=== PATIENT | male | born 1955 | race Caucasian/White ===

== ENCOUNTER 2017-09-27 21:06 | Observation (INO) | payer OTHER ==
[~2017-09-27] VITALS: Ht 167.6 cm; Wt 91.7 kg
[~2017-09-27 21:06] MED LIST: DEXT1TAB18 PO; GABA300C5 PO; OMEP20TA93 PO; ZITHTAB PO
[2017-09-27 21:14] VITALS: BP 114/68; PULSE 75; RESP 18; TEMP 98.4; O2SAT 97
--- NOTE | 2017-09-27 21:36 | PD ---
HPI Chief Complaint: Dizziness Time Seen by Provider: 21:22 Travel History International Travel<30 days: No Contact w/Intl Traveler<30days: No Traveled to known affect area: No History of Present Illness HPI 62-year-old male with history of hypercholesterolemia, here for evaluation of lightheadedness and visual changes. The patient reports that for the last week he has been having intermittent episodes of lightheadedness. This usually occurs while sitting at a desk performing work and resolves when he stands up and walks around. He states that this evening while watching TV the right side of his visual tovar went black. He states that this lasted for a few minutes and occurred about an hour prior to arrival. He is unsure if the visual field deficit was in one eye or both eyes. This has since resolved. No paresthesias or focal motor deficits. He states that intermittently for the last week when he walks he feels as though there is a sprain under his right leg that propels it in flexion. He has had intermittent headaches and currently has a slight headache that he describes as bandlike around his forehead to the back of his head, 3 out of 10, pressure. No fevers or recent illness. PFSH Past Medical History Diminished Hearing: No GERD: Yes Musculoskeletal: Yes (right foot) Ulcer: Yes Past Surgical History Abdominal Surgery: Yes (debra inguinal hernia repair) Social History Alcohol Use: Yes (social) Tobacco Use: No Allergies-Medications (Allergen,Severity, Reaction): Coded Allergies: No Known Allergies (Unverified , 05/28/16) Reported Meds & Prescriptions Reported Meds & Active Scripts Active Mucinex DM Maximum Strength (Dextromethorphan-Guaifenesin ER 12 HR) 60-1,200 Mg Tab 1 Tab PO BID PRN Zithromax Z-Lobo (Azithromycin) 250 Mg Dspk 250 Mg PO DIRECTED 500 MG (2 tabs) day 1, then 1 tab days 2-5. Reported Omeprazole 20 Mg Tab 20 Mg PO DAILY Gabapentin 300 Mg Cap 300 Mg PO BID PRN Review of Systems Except as stated in HPI: all other systems reviewed are Neg Physical Exam Narrative GENERAL: Well-developed, well-nourished, comfortable, no apparent distress. SKIN: Focused skin assessment warm/dry. HEAD: Atraumatic. Normocephalic. EYES: Pupils equal, round, 3 mm, reactive to light. Visual acuity shows 20/40 in the left eye, 20/70 in the right eye, 20/40 in bilateral eyes. Visual tovar are intact. No scleral icterus. No injection or drainage. ENT: Mucous membranes pink and moist. NECK: Trachea midline. No JVD. CARDIOVASCULAR: Regular rate and rhythm. RESPIRATORY: No accessory muscle use. Clear to auscultation. Breath sounds equal bilaterally. GASTROINTESTINAL: Abdomen soft, non-tender, nondistended. MUSCULOSKELETAL: No obvious deformities. No clubbing. No cyanosis. No edema. NEUROLOGICAL: Awake and alert. No obvious cranial nerve deficits. Motor grossly within normal limits. Normal speech. Normal [id number] test bilaterally. No pronator drift. PSYCHIATRIC: Appropriate mood and affect; insight and judgment normal. Data Data Last Documented VS Vital Signs Date Time Temp Pulse Resp B/P (MAP) Pulse Ox O2 Delivery O2 Flow Rate FiO2 09/27/17 22:13 67 18 96/68 (77) 97 Room Air 09/27/17 21:14 98.4 Orders Orders Complete Blood Count With Diff (09/27/17 21:31) Comprehensive Metabolic Panel (09/27/17 21:31) Prothrombin Time / Inr (Pt) (09/27/17 21:31) Act Partial Throm Time (Ptt) (09/27/17 21:31) Iv Access Insert/Monitor (09/27/17 21:31) Ecg Monitoring (09/27/17 21:31) Oximetry (09/27/17 21:31) Sodium Chloride 0.9% Flush (Ns Flush) (09/27/17 21:45) Electrocardiogram (09/27/17 21:31) Ct Brain W/O Iv Contrast(Rout) (09/27/17 ) Aspirin Ec (Ecotrin Ec) (09/27/17 22:15) Urinalysis - C+S If Indicated (09/27/17 22:29) Place In Observation (09/27/17 ) Vital Signs (Adult) Q2HX12,Q4H (09/27/17 22:35) Nih Stroke Scale - Nihss .Daily (09/27/17 22:35) Neuro Checks Q2HX12,Q4H (09/27/17 22:35) Notify Dr: Other (09/27/17 22:35) Remove Urinary Catheter .ONCE (09/27/17 22:35) Ot Request For Service (09/27/17 22:35) Pt Request For Service (09/27/17 22:35) Case Management Consult (09/27/17 ) Activity Oob Ad Blanca (09/27/17 22:35) Nursing Bedside Swallow Assess .ONCE (09/27/17 22:35) Scd Bilateral/Knee High LOGAN.QSHIFT (09/27/17 22:35) Diet Npo (09/28/17 Breakfast) Hemoglobin (Hgb) A1c (09/27/17 22:35) Lipid Profile (09/28/17 06:00) Us Carotid Arteries Comp Bilat (09/27/17 ) Mra Brain W/O Contrast (Cow) (09/27/17 ) Mri Brain W/O Contrast (09/27/17 ) ^ Hold Medication (09/27/17 22:35) Consult Neurology (09/27/17 ) Sodium Chloride 0.9% Flush (Ns Flush) (09/28/17 09:00) Sodium Chloride 0.9% Flush (Ns Flush) (09/27/17 22:45) Sodium Chlor 0.9% 1000 Ml Inj (Ns 1000 M (09/27/17 22:35) Aspirin (Aspirin) (09/28/17 09:00) Bedside Glucose LOGAN.CSUGAR (09/27/17 22:35) ^ Discontinue Insulin Orders (09/27/17 22:35) Low Novolog Scale (09/28/17 08:00) Dextrose 50% In Godfrey (Vial) Inj (D50w (Vi (09/27/17 22:45) Glucagon Inj (Glucagon Inj) (09/27/17 22:45) Plant Nursery Worker / Telemetry LOGAN.Q8H (09/27/17 22:35) Consult Stroke Navigator (09/27/17 ) Heparin Inj (Heparin Inj) (09/27/17 22:45) Admit Order (Ed Use Only) (09/27/17 22:36) Labs Laboratory Tests Test 09/27/17 21:45 White Blood Count 8.1 TH/MM3 Red Blood Count 4.56 MIL/MM3 Hemoglobin 13.8 GM/DL Hematocrit 42.3 % Mean Corpuscular Volume 92.9 FL Mean Corpuscular Hemoglobin 30.3 PG Mean Corpuscular Hemoglobin Concent 32.6 % Red Cell Distribution Width 12.7 % Platelet Count 334 TH/MM3 Mean Platelet Volume 7.9 FL Neutrophils (%) (Auto) 56.8 % Lymphocytes (%) (Auto) 34.6 % Monocytes (%) (Auto) 5.7 % Eosinophils (%) (Auto) 2.3 % Basophils (%) (Auto) 0.6 % Neutrophils # (Auto) 4.6 TH/MM3 Lymphocytes # (Auto) 2.8 TH/MM3 Monocytes # (Auto) 0.5 TH/MM3 Eosinophils # (Auto) 0.2 TH/MM3 Basophils # (Auto) 0.0 TH/MM3 CBC Comment DIFF FINAL Differential Comment Prothrombin Time 9.8 SEC Prothromb Time International Ratio 1.0 RATIO Activated Partial Thromboplast Time 26.5 SEC Blood Urea Nitrogen 11 MG/DL Creatinine 1.10 MG/DL Random Glucose 107 MG/DL Total Protein 8.0 GM/DL Albumin 4.1 GM/DL Calcium Level 9.3 MG/DL Alkaline Phosphatase 75 U/L Aspartate Amino Transf (AST/SGOT) 19 U/L Alanine Aminotransferase (ALT/SGPT) 26 U/L Total Bilirubin 0.2 MG/DL Sodium Level 139 MEQ/L Potassium Level 3.6 MEQ/L Chloride Level 104 MEQ/L Carbon Dioxide Level 30.5 MEQ/L Anion Gap 5 MEQ/L Estimat Glomerular Filtration Rate 68 ML/MIN MDM Medical Decision Making Medical Screen Exam Complete: Yes Emergency Medical Condition: Yes Interpretation(s) EKG: Sinus, rate 72, normal axis, normal intervals, no acute ischemic abnormality. Differential Diagnosis CVA/TIA, intracranial abnormality, metabolic abnormality, amaurosis fugax Narrative Course Initial vital signs show heart rate 75, blood pressure 114/68, pulse ox 97% on room air, oral temperature 98.4F. CBC is unremarkable. CMP is unremarkable. CT head: No acute intracranial findings. Mild mucosal disease in the ethmoid air cells. Patient was made aware of all findings. He is resting comfortably. No focal neurologic findings while in the emergency department. He also reports that his right-sided visual field deficits have resolved and were resolved prior to arrival. Sounds as though the patient may have had a TIA. He does have history of hypercholesterolemia and was on a statin for years, however this causes muscle cramps, so he stopped taking this medication. He was given a full aspirin and will be admitted for further TIA workup. Case discussed with hospitalist Dr. Fernandes who will admit the patient to the hospitalist service. Diagnosis Primary Impression: Transient vision disturbance Additional Impression: Lightheadedness Admitting Information Admitting Physician Requests: Observation Al Rosen MD Sep 27, 2017 21:36
[2017-09-27 21:45] VITALS: RESP 18; O2SAT 100
[2017-09-27] MEDS ORDERED: SODIUM CHLORIDE 0.9% FLUSH 10 ML FLUSH IV FLUSH PRN ×2 (21:45→22:45)
[2017-09-27 22:00] LABS: AUTOMATED NEUTROPHIL # 4.6 TH/MM3 (1.8-7.7); BASOPHIL % 0.6 % (0.0-2.0); EOSINOPHIL # 0.2 TH/MM3 (0-0.4); EOSINOPHIL % 2.3 % (0.0-4.0); HEMATOCRIT 42.3 % (39.0-51.0); HEMOGLOBIN 13.8 GM/DL (13.0-17.0); LYMPH % 34.6 % (9.0-44.0); LYMPHOCYTE # 2.8 TH/MM3 (1.0-4.8); MEAN CELL VOLUME 92.9 FL (80.0-100.0); MEAN CORPUSCULAR HEMOGLOBIN 30.3 PG (27.0-34.0); MEAN CORPUSCULAR HGB CONC 32.6 % (32.0-36.0); MEAN PLATELET VOLUME 7.9 FL (7.0-11.0); MONO % 5.7 % (0.0-8.0); MONOCYTE # 0.5 TH/MM3 (0-0.9); NEUT % 56.8 % (16.0-70.0); PLATELET COUNT 334 TH/MM3 (150-450); RED BLOOD COUNT 4.56 MIL/MM3 (4.50-5.90); RED CELL DISTRIBUTION WIDTH 12.7 % (11.6-17.2); WHITE BLOOD COUNT 8.1 TH/MM3 (4.0-11.0)
--- NOTE | 2017-09-27 22:01 | RADRPT ---
EXAM DATE/TIME: 09/27/2017 21:45 [facility] COMPARISON: No previous studies available for comparison. INDICATIONS : Cephalgia, dizziness, and intermittent blurry vision. RADIATION DOSE: 53.25 CTDIvol (mGy) MEDICAL HISTORY : None SURGICAL HISTORY : None. ENCOUNTER: Initial ACUITY: 1 week PAIN SCALE: 5/10 LOCATION: cranial TECHNIQUE: Multiple contiguous axial images were obtained of the head. Using automated exposure control and adj ustment of the mA and/or kV according to patient size, radiation dose was kept as low as reasonably a chievable to obtain optimal diagnostic quality images. DICOM format image data is available electro nically for review and comparison. FINDINGS: CEREBRUM: The ventricles are normal for age. No evidence of midline shift, mass lesion, hemorrhage or acute in farction. No extra-axial fluid collections are seen. POSTERIOR FOSSA: The cerebellum and brainstem are intact. The 4th ventricle is midline. The cerebellopontine angle i s unremarkable. EXTRACRANIAL: Mild mucosal disease in ethmoid air cells. SKULL: The calvaria is intact. No evidence of skull fracture. CONCLUSION: No acute intracranial findings Fred Johnston MD on September 27, 2017 at 21:57 Board Certified Radiologist. This report was verified electronically.
[2017-09-27 22:11] LABS: CHLORIDE 104 MEQ/L (98-107); SODIUM (NA) 139 MEQ/L (136-145)
[2017-09-27 22:13] VITALS: BP 96/68; PULSE 67; RESP 18; O2SAT 97
[2017-09-27 22:14] LABS: CALCIUM 9.3 MG/DL (8.5-10.1)
[2017-09-27 22:15] LABS: ALBUMIN 4.1 GM/DL (3.4-5.0); BICARBONATE 30.5 MEQ/L (21.0-32.0); BLOOD UREA NITROGEN 11 MG/DL (7-18); GLUCOSE,RANDOM 107 MG/DL (74-106)
[2017-09-27] MEDS ORDERED: ASPIRIN EC 325 MG TABEC PO ONE (22:15)
[2017-09-27 22:17] LABS: PROTHROMBIN TIME - PATIENT 9.8 SEC (9.8-11.6)
[2017-09-27 22:18] LABS: ALT (GPT) 26 U/L (12-78); AST (GOT) 19 U/L (15-37); GLOMERULAR FILTRATION RATE 68 ML/MIN (>89)
[2017-09-27 22:20] LABS: TOTAL BILIRUBIN ADULT 0.2 MG/DL (0.2-1.0)
[2017-09-27 22:21] LABS: ALKALINE PHOSPHATASE 75 U/L (45-117)
[2017-09-27] MEDS ORDERED: SODIUM CHLOR 0.9% 1000 ML INJ 1,000 ML IV SCH (22:35)
[2017-09-27 22:44] LABS: BILIRUBIN, URINE NEG (NEG); BLOOD, URINE NEG (NEG); GLUCOSE,URINE NEG (NEG); KETONE, URINE NEG (NEG); NITRITE,URINE NEG (NEG); PH, URINE 7.5 (5.0-8.5); URINE COLOR YELLOW (YELLW/STRAW); URINE LEUKOCYTE ESTERASE NEG (NEG)
[2017-09-27] MEDS ORDERED: GLUCAGON 1 MG/ML VIAL OTHER PRN (22:45)
[2017-09-27] MEDS ORDERED: DEXTROSE 50% IN WATER 50 ML VIAL(D50) IV PUSH PRN (22:45)
[2017-09-27] MEDS: HEPARIN SODIUM - SQ 10,000 UNITS/ML VIAL SQ SCH ×2 (22:45→23:46)
[2017-09-27 22:49] LABS: RBC, URINE 0-2 /hpf (0-3); SQUAMOUS EPITHELIAL CELL URINE 0-5 /hpf (0-5); WBC, URINE 0-2 /hpf (0-5)
[2017-09-27 23:45] VITALS: PULSE 68
[2017-09-28 03:30] VITALS: BP 108/68; PULSE 63; RESP 20; TEMP 97; O2SAT 97
[2017-09-28] MEDS: HEPARIN SODIUM - SQ 10,000 UNITS/ML VIAL SQ SCH (06:00)
[2017-09-28 08:00] VITALS: BP 118/67; PULSE 64; PULSE 69; RESP 15; TEMP 98; O2SAT 92
[2017-09-28] MEDS: INSULIN ASPART SUPPLEMENTAL SCALE SQ SCH ×2 (08:00→12:00)
--- NOTE | 2017-09-28 08:38 | RADRPT ---
EXAM DATE/TIME: 09/28/2017 07:58 [facility] COMPARISON: No previous studies available for comparison. INDICATIONS : Transient ischemic attack. MEDICAL HISTORY : Gastroesophageal reflux disease. Arthritis. Barets esophagus. Ulcers. Hiatal hernia. Heartburn. Enl arged prostate. Pinched nerves. Blood transfusions. SURGICAL HISTORY : Bilateral inguinal hernia repair. Left leg surgery. Carpal tunnel surgery left hand. ENCOUNTER: Initial ACUITY: 1 day PAIN SCORE: 0/10 LOCATION: Bilateral neck PEAK SYSTOLIC VELOCITIES (cm/sec): ICA/CCA RATIO: Right: 1.3 Left: 1.0 ICA: Right: 136 Left: 119 CCA: Right: 103 Left: 115 ECA: Right: 59 Left: 152 VERTEBRAL: Right: 42 antegrade Left: 89 antegrade Elevated flow velocities and ICA/CCA ratios have been found to correlate with increased degrees of vessel stenosis, calculated as percentage of diameter relative to a normal segment of distal ICA/CCA FINDINGS: RIGHT CAROTID: No significant stenosis is visualized. The waveforms are within normal limits. LEFT CAROTID: No significant stenosis is visualized. The waveforms are within normal limits. VERTEBRAL ARTERIES: Antegrade flow is seen in both vertebral arteries. MISCELLANEOUS: None. CONCLUSION: 1. Minimal bilateral carotid plaque without significant flow-limiting stenosis. 2. Antegrade vertebral artery flow bilaterally. Jimmie Arredondo MD on September 28, 2017 at 8:36 Board Certified Radiologist. This report was verified electronically.
[2017-09-28] MEDS ORDERED: ASPIRIN 325 MG TAB PO SCH (09:00)
[2017-09-28] MEDS ORDERED: SODIUM CHLORIDE 0.9% FLUSH 10 ML FLUSH IV FLUSH SCH (09:00)
--- NOTE | 2017-09-28 09:08 | PD.PN.STU ---
Subjective Remarks 62 year old male with history of hypercholesteremia presented to the ED with lightheadedness and loss of vision in his right visual field for 30 minute duration. He reports that he has had intermittent episodes of feeling lightheaded and unsteady on his feet when he goes from sitting to standing. He denies loss of consciousness or dizziness during these episodes. Yesterday he was watching TV when he describes that there was a "curtain pulled over half of his vision" on the right side. Vision change lasted approximately 15 minutes. His vision returned to normal before presenting to [facility] ED. He had no focal motor deficits but was unsteady on his feet when walking to the car/into the ED. Associated symptoms include headache which was a 3/10 on arrival, band- like around his forehead, and relieved by aspirin in the ED. Objective Vitals Vital Signs Date Time Temp Pulse Resp B/P (MAP) Pulse Ox O2 Delivery O2 Flow Rate FiO2 09/28/17 03:30 97.0 63 20 108/68 (81) 97 09/27/17 23:45 68 09/27/17 23:14 09/27/17 22:13 67 18 96/68 (77) 97 Room Air 09/27/17 21:45 18 100 Room Air 09/27/17 21:34 18 98 Room Air 09/27/17 21:14 98.4 75 18 114/68 (83) 97 I/O 09/27/17 09/27/17 09/27/17 09/28/17 09/28/17 09/28/17 06:59 14:59 22:59 06:59 14:59 22:59 Intake Total 423 ml Output Total 775 ml Balance -352 ml Intake Oral 0 ml IV Total 423 ml Output Urine Total 775 ml # Voids 2 # Bowel Movements 0 Result Diagram: [id number]/27/17214409/[id number] Padma Moeller Sep 28, 2017 09:08 Karina Novoa MD Sep 28, 2017 12:18
[2017-09-28] MEDS ORDERED: SODIUM CHLOR 0.9% 1000 ML INJ 1,000 ML IV SCH (10:10)
[2017-09-28] MEDS ORDERED: ASPIRIN EC 325 MG TABEC PO SCH (10:15)
[2017-09-28 10:24] LABS: CHOLESTEROL 187 MG/DL (120-200); TRIGLYCERIDES 109 MG/DL (42-150)
[2017-09-28 10:26] LABS: CHOLESTEROL/ HDL RATIO 4.25 RATIO; LDL CHOLESTEROL 121 MG/DL (0-99)
--- NOTE | 2017-09-28 10:39 | RADRPT ---
EXAM DATE/TIME: 09/28/2017 09:44 [facility] COMPARISON: No previous studies available for comparison. INDICATIONS : TIA. Intermittent blurry vision yesterday, now resolved. MEDICAL HISTORY : None. SURGICAL HISTORY : Umbilical hernia repair. Carpal tunnel. Left leg fracture. ENCOUNTER: Subsequent ACUITY: 2 day PAIN SCORE: 0/10 LOCATION: head. Please note a normal MRA of the brain does not entirely exclude the possibility of a small aneurysm, nor the possibility of distal intracranial vessel disease. TECHNIQUE: 3D time of flight MRA was performed. Source images, multiplanar STS MIP, and 3D volume MIP reconstru ctions were reviewed. FINDINGS: Anterior circulation: Distal intracranial internal carotid arteries are patent with flow extending to the middle and anteri or cerebral arteries. There is no evidence for aneurysm, vessel truncation or stenosis, and no eviden ce for vascular malformation. Posterior circulation: Symmetric distal vertebral arteries with flow extending to basilar artery. There is origin of the left posterior she will artery. Apparent focal occlusion/severe stenosis of the proximal left pos terior cerebral artery. There is no evidence for aneurysm and no evidence for vascular malformation. CONCLUSION: 1. origin of the left posterior cerebral artery with apparent focal occlusion/severe stenosis o f the proximal segment. Consider CTA examination for further evaluation. Jimmie Arredondo MD on September 28, 2017 at 10:32 Board Certified Radiologist. This report was verified electronically.
--- NOTE | 2017-09-28 10:41 | RADRPT ---
EXAM DATE/TIME: 09/28/2017 09:44 [facility] COMPARISON: No previous studies available for comparison. INDICATIONS : TIA. Intermittent blurry vision yesterday, now resolved. MEDICAL HISTORY : None. SURGICAL HISTORY : Umbilical hernia repair. Carpal tunnel. Left leg fracture. ENCOUNTER: Subsequent ACUITY: 2 day PAIN SCORE: 0/10 LOCATION: head. TECHNIQUE: Multiplanar, multisequence MRI of the brain was performed without contrast. FINDINGS: CEREBRUM: The ventricles are normal for age. No evidence of midline shift, mass lesion, hemorrhage or acute in farction. No extraaxial fluid collections are seen. The pituitary gland and suprasellar cistern are normal in configuration. WHITE MATTER: No significant signal abnormalities are seen in the white matter. POSTERIOR FOSSA: The cerebellum and brainstem are intact. The 4th ventricle is midline. The cerebellopontine angle is unremarkable. The cerebellar tonsils are normal in position. DIFFUSION IMAGING: No focal areas of restricted diffusion are seen. No evidence of acute infarction. EXTRACRANIAL: Mild mucoperiosteal soft tissue swelling is seen throughout the ethmoid air cells. CONCLUSION: 1. Mild inflammatory paranasal sinus disease. 2. Normal appearing brain without evidence of acute infarct, hemorrhage, mass or edema. 1. Esvin Isaac MD on September 28, 2017 at 10:37 Board Certified Radiologist. This report was verified electronically.
--- NOTE | 2017-09-28 10:42 | MB ---
cc: Preet Panchal MD DATE: 09/28/2017 HISTORY OF PRESENT ILLNESS: A 62-year-old right-handed man without significant past medical history. He gets a rare headache not very often. He has felt for the last week or so his right leg seemed a little off where it might bounce up too quick. No other symptoms. It happened if he sat for a while and then yesterday he was watching TV, felt a little lightheaded, no vertigo or spinning, and then he noticed that he could not see over to the right. He did not cover either eye at that time. It seemed to come over from the right and if he concentrated hard this darkness on the right side seemed to recede back, but then it would come back again. He did not have a headache at that time, but had a mild bifrontal headache afterwards. There was no brightness or sparkling to it. When he covered his one eye and then the other, which was much later after it had resolved, he did not notice any difference, although evidently his visual acuity in the right eye was down somewhat in the ER. REVIEW OF SYSTEMS: He denied any other significant migraine headaches, chest pain, palpitations, hypertension, diabetes, hypercholesterolemia, MN, CABG, cardiac arrhythmia, renal, hepatic or pulmonary disease, thyroid disease, lupus, ulcer, cancer, seizure or stroke. SOCIAL HISTORY: Not a smoker or a drinker. He lives with his . FAMILY HISTORY: Negative for cancer, seizure, or stroke. Positive for COPD. Positive for CAD. PAST MEDICAL HISTORY: From the chart, history of hypercholesterolemia, although he denies it to me. MEDICATIONS: 1. Omeprazole. 2. Gabapentin 300 b.i.d. p.r.n. 3. Zithromax. 4. Dextromethorphan. ALLERGIES: NO KNOWN DRUG ALLERGIES. PHYSICAL EXAMINATION: VITAL SIGNS: Afebrile, 69, 15, 118/67. He has been in sinus rhythm here. No atrial fibrillation. Normal pulse oximetry. NECK: There were no carotid or vertebral bruits. HEART: Regular rate and rhythm. I did not detect a murmur. NEUROLOGIC: Pupils are equal. Visual tovar are full. Extraocular movements intact without nystagmus. There was no scotoma on the right side. Face was symmetric with normal sensation. Tongue was midline. There is no drift. She had normal strength in the upper and lower extremities bilaterally. DTRs are trace throughout. Toes are downgoing bilaterally. Pinprick is intact throughout including the face. He is not ataxic on [id number]. Speech is fluent. He is not aphasic. Temples are nontender bilaterally, nor has he had any tenderness there. LABORATORY DATA: CBC is normal. UA is negative. Basic metabolic profile normal. LFTs are normal. LDL is pending. Coags were normal. He had a carotid ultrasound that was negative. CAT scan of the brain was read as normal. MRI of the brain showed minimal white matter changes bilaterally. MRA habematolel of Patricia preliminary negative. Await the official reports. IMPRESSION: 1. Possible transient monocular blindness, although it usually comes down more from the superior to the inferior not laterally. A transient homonymous hemianopsia could be considered or a migraine could also be considered. I will give him a 325 of aspirin, check an echo and Holter, some additional blood work including a sedimentation rate. If his LDL is elevated, I would recommend a statin. Check an MRA of the neck to make sure that there is no occult carotid disease not picked up by the ultrasound. If his echo is negative and his MRA is negative and his EEG is done and his official reports on his MR is negative, he could be discharged later today with the Holter on. I think he should see ophthalmology either here in the hospital or tomorrow as an outpatient to see if there is any Hollenhorst plaques noted on his retinal exam. Also, if he is discharged, the med team should make sure that his sedimentation rate and CRP are negative, which I ordered. Preet Panchal MD DJAinsley/ALIA , 10:13 AM , 10:41 AM
[2017-09-28] MEDS ORDERED: GADODIAMIDE PF 287 MG/ML 20 ML VIAL (for RAD MRI) IVCONTRAST ONE (11:15)
--- NOTE | 2017-09-28 11:44 | RADRPT ---
EXAM DATE/TIME: 09/28/2017 10:42 [facility] COMPARISON: No previous studies available for comparison. INDICATIONS : Stenosis. CONTRAST: 20 cc Omniscan (gadodiamide) IV MEDICAL HISTORY : None. SURGICAL HISTORY : Umbilical hernia repair. Carpal tunnel. Left leg fracture. ENCOUNTER: Subsequent ACUITY: 2 day PAIN SCORE: 0/10 LOCATION: neck. Percent stenosis is calculated using the diameter of the stenotic region over the diameter of the nor mal distal internal carotid artery. TECHNIQUE: Bolus infused MRA of the extracranial circulation was performed using a neurovascular coil. Post pro cessing was performed including rotating subvolume maximum intensity projections of each carotid vickey ry, rotating full volume maximum intensity projections of both carotid arteries, sagittal and coronal sliding thin slab reformations of each carotid artery, and left oblique sliding thin slab reformatio n through the aortic arch to include the origin of the arch branch vessels. FINDINGS: AORTIC ARCH: There is a three vessel origin of the great vessels from the aorta. No evidence of ostial narrowing. High-grade stenosis is identified in the proximal left subclavian artery just distal to the vertebra l artery. RIGHT CAROTID: The common carotid artery is intact. The carotid bulb has a normal configuration without ulceration or narrowing. The internal carotid artery lumen is smooth without stenosis. The external carotid ar logan is intact. LEFT CAROTID: The common carotid artery is intact. The carotid bulb has a normal configuration without ulceration or narrowing. The internal carotid artery lumen is smooth without stenosis. The external carotid ar logan is intact. VERTEBRALS: The vertebral arteries are asymmetric in appearance with a dominant left vertebral artery. The proxim al right vertebral artery is not clearly visualized. CONCLUSION: 1. High-grade proximal left subclavian artery stenosis. 2. No evidence of hemodynamically significant stenosis involving the carotid arteries.. 3. Dominant left vertebral artery 4. Poor visualization of the right vertebral artery origin. Esvin Isaac MD on September 28, 2017 at 11:36 Board Certified Radiologist. This report was verified electronically.
[2017-09-28 12:00] VITALS: BP 122/82; PULSE 67; RESP 16; TEMP 96; O2SAT 96
[2017-09-28 12:05] LABS: C-REACTIVE PROTEIN 0.83 MG/DL (0.00-0.30)
[2017-09-28 12:09] LABS: TROPONIN I LESS THAN 0.02 NG/ML (0.02-0.05)
--- NOTE | 2017-09-28 12:35 | HHI.HP ---
[facility] Phys[facility] Admission Diagnosis Transient visual disturbance, lightheadedness Diagnoses: Chief Complaint: Change in vision Travel History International Travel<30 Days: No Contact w/Intl Traveler <30 Da: No Traveled to Known Affected Are: No History of Present Illness This patient is a 62-year-old gentleman who had an 1 day acute right sided vision loss for 15 minute duration. Patient describes it as a curtain coming over his right visual field had a headache and lightheadedness associated with this. He was unsteady on his feet. Patient describes intermittent lightheadedness for 1 week, worse with standing. Patient denies any numbness peripheral weakness chest pain shortness of breath or palpitations. No new medications prescribed. Patient did come to the emergency room for further evaluation and treatment of the symptoms. By the time of his arrival to the emergency room his vision had returned to normal. Patient normally does wear trifocal lenses. He has been seen at this time by neurology and has had multiple imaging studies which are concerning for some high-grade left subclavian vascular stenosis. Patient has been recommended for anticoagulation versus aspirin however patient is quite concerned given his history of gastrointestinal issues including Parks's esophagus and ulceration of the stomach. Review of Systems Constitutional: DENIES: Diaphoretic episodes, Fatigue, Fever, Weight gain, Weight loss, Chills, Dizziness, Change in appetite, Night Sweats Endocrine: DENIES: Heat/cold intolerance, Polydipsia, Polyuria, Polyphagia Eyes: COMPLAINS OF: Vision loss, DENIES: Blurred vision, Diplopia, Eye inflammation, Eye pain, Photosensitivity, Double Vision Ears, nose, mouth, throat: DENIES: Tinnitus, Hearing loss, Vertigo, Nasal discharge, Oral lesions, Throat pain, Hoarseness, Ear Pain, Running Nose, Epistaxis, Sinus Pain, Toothache, Odynophagia Respiratory: DENIES: Apneas, Cough, Snoring, Wheezing, Hemoptysis, Sputum production, Shortness of breath Cardiovascular: DENIES: Chest pain, Palpitations, Syncope, Dyspnea on Exertion , PND, Lower Extremity Edema, Orthopnea, Claudication Gastrointestinal: DENIES: Abdominal pain, Black stools, Bloody stools, Constipation, Diarrhea, Nausea, Vomiting, Difficulty Swallowing, Anorexia Genitourinary: DENIES: Sexual dysfunction, Urinary frequency, Urinary incontinence, Urgency, Hematuria, Dysuria, Nocturia, Penile Discharge, Testicular Pain, Testicular Swelling Musculoskeletal: DENIES: Joint pain, Muscle aches, Stiffness, Joint Swelling, Back pain, Neck pain Integumentary: DENIES: Abnormal pigmentation, Nail changes, Pruritus, Rash Hematologic/lymphatic: DENIES: Bruising, Lymphadenopathy Immunologic/allergic: DENIES: Eczema, Urticaria Neurologic: COMPLAINS OF: Headache, DENIES: Abnormal gait, Localized weakness, Paresthesias, Seizures, Speech Problems, Tremor, Poor Balance Psychiatric: DENIES: Anxiety, Confusion, Mood changes, Depression, Hallucinations, Agitation, Suicidal Ideation, Homicidal Ideation, Delusions Except as stated in HPI: all other systems reviewed are Neg Lightheadedness Past Family Social History Past Medical History Hypercholesterolemia Parks's esophagus Gastritis History of ulcers Past Surgical History Bilateral inguinal hernia repair Carpal tunnel release With cyst removal on the right Reported Medications Reviewed in the EMR, does not take azithromycin or Mucinex Allergies: Coded Allergies: No Known Allergies (Unverified Allergy, Unknown, 09/27/17) Active Ordered Medications Reviewed in the EMR Family History Mother of "fluid on the lungs "at 52 Father of emphysema at 72 Social History airline mechanic Retired [place] Social alcohol Quit tobacco 9 years ago, 35 pack year history Physical Exam Vital Signs Vital Signs Date Time Temp Pulse Resp B/P (MAP) Pulse Ox O2 Delivery O2 Flow Rate FiO2 09/28/17 08:00 98.0 69 15 118/67 (84) 92 09/28/17 08:00 64 09/28/17 03:30 97.0 63 20 108/68 (81) 97 09/27/17 23:45 68 09/27/17 23:14 09/27/17 22:13 67 18 96/68 (77) 97 Room Air 09/27/17 21:45 18 100 Room Air 09/27/17 21:34 18 98 Room Air 09/27/17 21:14 98.4 75 18 114/68 (83) 97 Physical Exam GENERAL: This is a well-nourished, well-developed patient, in no apparent distress. SKIN: No rashes, ecchymoses or lesions. Cool and dry. HEAD: Atraumatic. Normocephalic. No temporal or scalp tenderness. EYES: Pupils equal round and reactive. Extraocular motions intact. No scleral icterus. No injection or drainage. ENT: Nose without bleeding, purulent drainage or septal hematoma. Throat without erythema, tonsillar hypertrophy or exudate. Uvula midline. Airway patent. NECK: Trachea midline. No JVD or lymphadenopathy. Supple, nontender, no meningeal signs. CARDIOVASCULAR: Regular rate and rhythm without murmurs, gallops, or rubs. RESPIRATORY: Clear to auscultation. Breath sounds equal bilaterally. No wheezes , rales, or rhonchi. GASTROINTESTINAL: Abdomen soft, non-tender, nondistended. No hepato-splenomegaly , or palpable masses. No guarding. MUSCULOSKELETAL: Extremities without clubbing, cyanosis, or edema. No joint tenderness, effusion, or edema noted. No calf tenderness. Negative Homans sign bilaterally. NEUROLOGICAL: Awake and alert. Cranial nerves II through XII intact. Motor and sensory grossly within normal limits. Five out of 5 muscle strength in all muscle groups. Normal speech. Laboratory Laboratory Tests Test 09/27/17 21:45 09/27/17 22:35 09/28/17 05:00 09/28/17 11:00 White Blood Count 8.1 Red Blood Count 4.56 Hemoglobin 13.8 Hematocrit 42.3 Mean Corpuscular Volume 92.9 Mean Corpuscular Hemoglobin 30.3 Mean Corpuscular Hemoglobin Concent 32.6 Red Cell Distribution Width 12.7 Platelet Count 334 Mean Platelet Volume 7.9 Neutrophils (%) (Auto) 56.8 Lymphocytes (%) (Auto) 34.6 Monocytes (%) (Auto) 5.7 Eosinophils (%) (Auto) 2.3 Basophils (%) (Auto) 0.6 Neutrophils # (Auto) 4.6 Lymphocytes # (Auto) 2.8 Monocytes # (Auto) 0.5 Eosinophils # (Auto) 0.2 Basophils # (Auto) 0.0 CBC Comment DIFF FINAL Differential Comment Prothrombin Time 9.8 Prothromb Time International Ratio 1.0 Activated Partial Thromboplast Time 26.5 Blood Urea Nitrogen 11 Creatinine 1.10 Random Glucose 107 Total Protein 8.0 Albumin 4.1 Calcium Level 9.3 Alkaline Phosphatase 75 Aspartate Amino Transf (AST/SGOT) 19 Alanine Aminotransferase (ALT/SGPT) 26 Total Bilirubin 0.2 Sodium Level 139 Potassium Level 3.6 Chloride Level 104 Carbon Dioxide Level 30.5 Anion Gap 5 Estimat Glomerular Filtration Rate 68 Urine Color YELLOW Urine Turbidity CLEAR Urine pH 7.5 Urine Specific [place] 1.010 Urine Protein NEG Urine Glucose (UA) NEG Urine Ketones NEG Urine Occult Blood NEG Urine Nitrite NEG Urine Bilirubin NEG Urine Urobilinogen 0.2 Urine Leukocyte Esterase NEG Urine RBC 0-2 Urine WBC 0-2 Urine Squamous Epithelial Cells 0-5 Urine Bacteria NONE Microscopic Urinalysis Comment CULT NOT INDICATED Triglycerides Level 109 Cholesterol Level 187 LDL Cholesterol 121 HDL Cholesterol 44.0 Cholesterol/HDL Ratio 4.25 Total Creatine Kinase 50 Troponin I LESS THAN 0.02 C-Reactive Protein 0.83 Thyroid Stimulating Hormone 3rd Gen 1.570 Result Diagram: 09/27/17214409/27/172144 Imaging Last Impressions Neck Magnetic Resonance Angiography 09/28/17 1102 Signed Impressions: Service Date/Time: September 10:42 - CONCLUSION: 1. High- grade proximal left subclavian artery stenosis. 2. No evidence of hemodynamically significant stenosis involving the carotid arteries.. 3. Dominant left vertebral artery 4. Poor visualization of the right vertebral artery origin. Esvin Isaac MD Head Magnetic Resonance Angiography 09/28/17 0000 Signed Impressions: Service Date/Time: September 09:44 - CONCLUSION: 1. origin of the left posterior cerebral artery with apparent focal occlusion/severe stenosis of the proximal segment. Consider CTA examination for further evaluation. Jimmie Arredondo MD Carotid Artery Ultrasound 09/28/17 0000 Signed Impressions: Service Date/Time: September 07:58 - CONCLUSION: 1. Minimal bilateral carotid plaque without significant flow-limiting stenosis. 2. Antegrade vertebral artery flow bilaterally. Jimmie Arredondo MD Brain MRI 09/28/17 0000 Signed Impressions: Service Date/Time: September 09:44 - CONCLUSION: 1. Mild inflammatory paranasal sinus disease. 2. Normal appearing brain without evidence of acute infarct, hemorrhage, mass or edema. 1. Esvin Isaac MD Head CT 09/27/17 0000 Signed Impressions: Service Date/Time: Wednesday, September 27, 2017 21:45 - CONCLUSION: No acute intracranial findings MD Rajeev Wilson VTE Risk Assessment Caprinryna VTE Risk Assessment: Mod/High Risk (score >= 2) Caprini Risk Assessment Model Point Value = 1 Point Value = 2 Point Value = 3 Point Value = 5 Age 41-60 Minor surgery BMI > 25 kg/m2 Swollen legs Varicose veins or History of unexplained or recurrent spontaneous Oral contraceptives or hormone replacement Sepsis (< 1 month) Serious lung disease, including pneumonia (< 1 month) Abnormal pulmonary function Acute myocardial infarction Congestive heart failure (< 1 month) History of inflammatory bowel disease Medical patient at bed rest Age 61-74 Arthroscopic surgery Major open surgery (> 45 min) Laparoscopic surgery (> 45 min) Malignancy Confined to bed (> 72 hours) Immobilizing plaster cast Central venous access Age >= 75 History of VTE Family history of VTE Factor V Leiden Prothrombin [id number] Lupus anticoagulant Anticardiolipin antibodies Elevated serum homocysteine Heparin-induced thrombocytopenia Other congenital or acquired thrombophilia Stroke (< 1 month) Elective arthroplasty Hip, pelvis, or leg fracture Acute spinal cord injury (< 1 month) Prophylaxis Regimen Total Risk Factor Score Risk Level Prophylaxis Regimen 0-1 Low Early ambulation 2 Moderate Order ONE of the following: *Sequential Compression Device (SCD) *Heparin 5000 units SQ BID 3-4 Higher Order ONE of the following medications: *Heparin 5000 units SQ TID *Enoxaparin/Lovenox 40 mg SQ daily (WT < 150 kg, CrCl > 30 mL/min) *Enoxaparin/Lovenox 30 mg SQ daily (WT < 150 kg, CrCl > 10-29 mL/min) *Enoxaparin/Lovenox 30 mg SQ BID (WT < 150 kg, CrCl > 30 mL/min) AND/OR *Sequential Compression Device (SCD) 5 or more Highest Order ONE of the following medications: *Heparin 5000 units SQ TID (Preferred with Epidurals) *Enoxaparin/Lovenox 40 mg SQ daily (WT < 150 kg, CrCl > 30 mL/min) *Enoxaparin/Lovenox 30 mg SQ daily (WT < 150 kg, CrCl > 10-29 mL/min) *Enoxaparin/Lovenox 30 mg SQ BID (WT < 150 kg, CrCl > 30 mL/min) AND *Sequential Compression Device (SCD) Assessment and Plan Problem List: (1) Vision changes ICD Code: H53.9 - Unspecified visual disturbance Plan: Rule out TIA versus ophthalmological phenomena versus hypotension Neurology consult appreciated Patient may indeed be a candidate for aspirin for possible TIA however with his history of gastrointestinal troubles including Parks's esophagus and and gastritis and ulcers he does not want to continue anticoagulation or aspirin should be indicated Follow-up imaging, MRA is abnormal we will discuss with neurology Risk factors for stroke include hyperlipidemia, smoking history (2) Pre-syncope ICD Code: R55 - Syncope and collapse Plan: Patient is quite hypotensive Will follow up with IV hydration Check orthostasis (3) Hypercholesteremia ICD Code: E78.00 - Pure hypercholesterolemia, unspecified Plan: Patient was previously on a statin but had medication side effects and has not been restarted Discussed Condition With Nursing team Karina Novoa MD Sep 28, 2017 12:35
[2017-09-28] MEDS ORDERED: PANTOPRAZOLE SOD 20 MG DELAYED RELEASE TAB PO SCH (13:00)
--- NOTE | 2017-09-28 13:29 | EKG ---
Date Performed: 09/27/2017 Time Performed: 21:56:51 PTAGE: 62 years EKG: Sinus rhythm NORMAL ECG NO PREVIOUS TRACING DOCTOR: Lorenzo Johnson Interpretating Date/Time 09/28/2017 13:25:57
[2017-09-28 13:57] LABS: BICARBONATE 26.7 MEQ/L (21.0-32.0); CALCIUM 8.3 MG/DL (8.5-10.1); CREATININE 0.82 MG/DL (0.60-1.30)
--- NOTE | 2017-09-28 15:09 | ECHRPT ---
Indication: CVA/TIA CONCLUSIONS Normal left ventricular size. Wall thickness is normal. The left ventricular systolic function is low normal with an estimated ejection fraction in the rang e of 50- 55%. BP: / HR: Rhythm: MEASUREMENTS (Male / Female) Normal Values Technical Quality: 2D ECHO LV Diastolic Diameter PLAX 4.1 cm 4.2 - 5.9 / 3.9 - 5.3 cm LV Systolic Diameter PLAX 3.1 cm IVS Diastolic Thickness 0.9 cm 0.6 - 1.0 / 0.6 - 0.9 cm LVPW Diastolic Thickness 0.7 cm 0.6 - 1.0 / 0.6 - 0.9 cm LV Relative Wall Thickness 0.4 M-MODE Aortic Root Diameter MM 3.1 cm AV Cusp Separation MM 1.9 cm DOPPLER Mitral E Point Velocity 73.5 cm/s Mitral A Point Velocity 86.9 cm/s Mitral E to A Ratio 0.8 TR Peak Velocity 147.0 cm/s TR Peak Gradient 8.6 mmHg FINDINGS LEFT VENTRICLE Normal left ventricular size. Wall thickness is normal. The left ventricular systolic function is low normal with an estimated ejection fraction in the rang e of 50- 55%. RIGHT VENTRICLE Normal right ventricular size and systolic function. LEFT ATRIUM The left atrial size is normal. RIGHT ATRIUM The right atrial size is normal. ATRIAL SEPTUM Normal atrial septal thickness without atrial level shunting by limited color doppler interrogation. AORTA The aortic root and proximal ascending aorta are normal in size on limited imaging. MITRAL VALVE Structurally normal mitral valve. No mitral valve stenosis or regurgitation. AORTIC VALVE Trileaflet aortic valve. No aortic valve stenosis or regurgitation. TRICUSPID VALVE Structurally normal tricuspid valve. No tricuspid valve stenosis or regurgitation. PULMONARY VALVE The pulmonary valve is not well visualized. VESSELS The inferior vena cava is normal in size. PERICARDIUM No pericardial effusion. Hermann Preciado MD, FACC, [facility] [place] (Electronically Signed) Final Date:28 September 2017 15:08
[2017-09-28] MEDS ORDERED: IOHEXOL 350 MG/ML 10 ML VIAL (for RAD DIAG) IVCONTRAST ONE (15:43)
[2017-09-28 16:00] VITALS: BP_SYST 124; BP_SYST 137; BP_DIAS 70; BP_DIAS 79; PULSE 76; RESP 14; TEMP 99; O2SAT 96
--- NOTE | 2017-09-28 16:02 | RADRPT ---
EXAM DATE/TIME: 09/28/2017 15:10 [place] COMPARISON: No previous studies available for comparison. INDICATIONS : Syncope. IV CONTRAST: 75 cc Omnipaque 350 (iohexol) IV RADIATION DOSE: 42.10 CTDIvol (mGy) MEDICAL HISTORY : Ulcers. Hernia, hiatal. Gastroesophageal reflux disease. SURGICAL HISTORY : Inguinal hernia repair. ENCOUNTER: Initial ACUITY: 1 day PAIN SCALE: 0/10 LOCATION: neck Elevated flow velocities and ICA/CCA ratios have been found to correlate with increased degrees of vessel stenosis, calculated as percentage of diameter relative to a normal segment of distal ICA/CCA. TECHNIQUE: Volumetric scanning was performed using a multirow detector CT scanner. The data was post processed with a variety of visualization algorithms including full-volume maximum intensity projection, multip lanar sliding thin-slab reformation, curved-planar reformation, and surface-rendering techniques. Us ing automated exposure control and adjustment of the mA and/or kV according to patient size, radiatio n dose was kept as low as reasonably achievable to obtain optimal diagnostic quality images. DICOM f ormat image data is available electronically for review and comparison. FINDINGS: AORTIC ARCH: There is a three-vessel origin of the great vessels from the aorta. No evidence of ostial narrowing. RIGHT CAROTID: Mild luminal irregularity and minimal calcified plaque is identified in the right carotid bifurcation . There is no evidence of hemodynamically significant stenosis. LEFT CAROTID: Mild luminal irregularity and minimal calcified plaque is identified in the left carotid bifurcation. There is no evidence of hemodynamically significant stenosis. VERTEBRALS: The left artery is slightly dominant. The vertebral artery origins are widely patent without signific ant stenosis. There is no evidence of significant stenosis seen along the course of the cervical segm ents of the vertebral arteries. CONCLUSION: 1. Very mild atherosclerotic disease. 2. No evidence of hemodynamically significant stenosis involving the carotid or vertebral arteries. Esvin Isaac MD on September 28, 2017 at 15:48 Board Certified Radiologist. This report was verified electronically.
[2017-09-28] MEDS ORDERED: ASPI325T33 PO (16:18)
--- NOTE | 2017-09-28 16:19 | HHI.DCPOC ---
Discharge Care Plan Diagnosis: (1) Vision changes (2) Transient vision disturbance Goals to Promote Your Health * To prevent worsening of your condition and complications * To maintain your health at the optimal level Directions to Meet Your Goals Take your medications as prescribed Follow your dietary instruction Follow activity as directed Keep your appointments as scheduled Take your immunizations and boosters as scheduled If your symptoms worsen call your PCP, if no PCP go to Urgent Care Center or Emergency Room Smoking is Dangerous to Your Health. Avoid second hand smoke Call the 24-hour hour crisis hotline for domestic abuse at Karina Novoa MD Sep 28, 2017 16:19
[2017-09-28 18:31] LABS: HEMOGLOBIN A1C 5.7 % (4.3-6.0)
--- NOTE | 2017-09-28 18:40 | MG ---
cc: Polo Hussein MD, Olimpio F MD REFERRING PHYSICIAN: Dr. Panchal. An EEG was obtained on This 62-year-old patient, awake and asleep and being evaluated for lightheadedness. INTERPRETATION: The EEG shows low-amplitude beta rhythms diffusely. There is some intermixed low and mid amplitude 10-12 per second alpha activity. There is eye movement artifact. Hyperventilation disclosed no significant change. Photic stimulation was unremarkable. IMPRESSION: Probably normal. Low amplitude predominantly awake electroencephalogram. Polo Sears. MD [facility] , 06:30 PM , 06:39 PM
--- NOTE | 2017-09-30 21:10 | HM ---
Date Performed: 09/28/2017 Time Performed: 16:23:00 HOOKUP DATE: 09/28/17 04:23:00 PM [facility] ANALYSIS START TIME: 09/28/2017 4:28:00 PM ANALYSIS END TIME: 09/29/2017 3:20:15 PM PATIENT AGE: 62 PATIENT HEIGHT: 66 PATIENT WEIGHT: 202 DRUG LIST: room # 83/pa home PATIENT DIAGNOSIS: TRANSIENT VISUAL DISTURBANCE LIGHTHEADEDNESS TEST NARRATIVE: The patient's average heart rate was 73 BPM. Heart rates greater than 120 B PM were noted < 1% of the time. No episodes of bradycardia were noted. No pauses exceeding 2.0 s econds were noted. 327 ventricular ectopics, which represented < 1% of the total beat count, were noted. The highest ventricular ectopic frequency occurred from 05:00 PM to 06:00 PM Sherie. During th is time 39 VE(s) occurred. Ventricular ectopics were observed as 327 isolated beat(s) only. No coup lets or runs were noted. 3 supraventricular ectopics, which represented < 1% of the total beat co unt, were noted. The highest supraventricular ectopic frequency occurred from 07:00 PM to 08:00 PM T hu. During this time 1 SVE(s) occurred. No episodes of ST depression (defined as -1.0 mm or more ) were noted in channel 1. No episodes of ST depression (defined as -1.0 mm or more) were noted in c hannel 2. No episodes of ST depression (defined as -1.0 mm or more) were noted in channel 3. NO DIAR Y ENTRIES TEST INTERPRETATION: This patient has been in Sinus rhythm throughout the recording. Average HR of 73, minimum HR of 50, peak HR of 124. There's frequent episo kyler of sinus arrhythmia There are rare atrial premature beats, only 3 counted over 24 hours There are 327 ventricular premature beats counted, but no couplets or runs of ventricular tachycardia There's no diary returned Conclusions: sinus rhythm thoughout the recording with ventricular ectopic beats as described. Signed by : Ander Kim on
[2017-10-02 14:29] LABS: ANA PATTERN NUCLEOLAR
[2017-10-02 15:45] LABS: METHYLMALONIC ACID 0.07 nmol/mL (<=0.40)
== END 2017-09-28 17:20 | disposition home or self-care (01) ==
LOC: PHED 21:06 → PHEDA 22:37 → PH3B 23:10
PROVIDERS: ADMIT Hospitalist; ATTEND Hospitalist
DX: H53.9 Unspecified visual disturbance (principal); R42 Dizziness and giddiness; E78.00 Pure hypercholesterolemia, unspecified; H54.61 Unqualified visual loss, right eye, normal vision left eye; R51 Headache; R26.81 Unsteadiness on feet; Z87.11 Personal history of peptic ulcer disease; K22.70 Barrett's esophagus without dysplasia; K29.70 Gastritis, unspecified, without bleeding; Z87.891 Personal history of nicotine dependence; R55 Syncope and collapse; I95.9 Hypotension, unspecified; Z82.49 Family history of ischemic heart disease and other diseases of the circulatory system; K21.9 Gastro-esophageal reflux disease without esophagitis
CPT/HCPCS: 70450; 70498; 70544; 70548; 70551; 80048; 80053; 80061; 81001; 82550; 82607; 82948; 83036; 83921; 84425; 84439; 84443; 84484; 85025; 85610; 85652; 85730; 86038; 86039; 86140; 93005; 93225; 93226; 93306; 93880; 95819; 96360; 96361; 97162; 97165; 99285; A9579; G0378; G8987; G8988; G8989; J7030; Q9967; J1644